=== PATIENT | male | born 1950 | race Caucasian/White ===

== ENCOUNTER → 2021-06-29 | Outpatient (CLI) | payer MEDICARE ==
--- NOTE | 2021-06-29 15:16 | CT ---
EXAMINATION TYPE: CT abdomen pelvis wo con DATE OF EXAM: 06/29/2021 COMPARISON: None INDICATION: Cramping DLP: 1300.50 mGycm, Automated exposure control for dose reduction was used. CONTRAST: 0 mL of Isovue 300. Study performed without Oral Contrast TECHNIQUE: Axial images were obtained from above the diaphragm to the pubic rami in the axial plane a t 5 mm thick sections. Reconstructed images are reviewed on the computer in the coronal plane. FINDINGS: Limited CT sections are obtained the lung bases. The lung bases are clear. CT ABDOMEN: Liver: Normal Spleen: Normal Pancreas: Normal Adrenal glands: The adrenal glands are normal. Gallbladder: Normal Kidneys: No masses are evident. No hydronephrosis is present. There are 2 cysts at the inferior emilee e right kidney measuring 4.0 cm and 4 Hounsfield units and 2.5 cm and 11 Hounsfield units. There is a n additional 1.9 cm cyst on the inferior pole right kidney. There is a 0.4 cm nonobstructing inferio r pole right renal stone. Aorta: Vascular calcification is within the aorta. Inferior vena cava: Normal. CT PELVIS: Loops of bowel within the abdomen and pelvis are normal. This study is performed without oral con trast. Appendix: Normal as visualized. Urinary bladder: Normal. Genitourinary structures: Prostate is surgically absent. No suspicious inguinal or iliac chain or obt urator canal adenopathy is evident. Osseous structures: There is a sclerotic lesion within the right iliac wing adjacent to the sacroilia c joint measuring 3.9 x 2.1 cm. Sclerotic metastasis should be considered. No additional suspicious l esions to suggest metastasis are evident. IMPRESSIONS: 1. There may be a sclerotic metastasis within the medial right iliac wing. 2. Right inferior pole renal cysts. 3. 0.4 cm nonobstructing inferior pole right renal stone.
== END | disposition home or self-care (01) ==
LOC: RADCTMAIN 10:22
PROVIDERS: ATTEND Family Medicine
DX: N28.1 Cyst of kidney, acquired (principal); N20.0 Calculus of kidney
CPT/HCPCS: 74176